=== PATIENT | female | born 1950 | race Caucasian/White ===

== ENCOUNTER 2016-07-15 19:45 | Inpatient (IN) | payer OTHER ==
--- NOTE | 2016-07-15 20:00 | PDOC ---
History of Present Illness - General History Source: [facility] Records Exam Limitations: Other (Nonverbal) - History of Present Illness Initial Comments: 07/15/16 20:12 The patient is a 66-year-old female from [facility], who presents to the ED with asthma, CVA, hypertension, and depression, who was sent to the ED for nausea and vomiting. HPI is limited because patient is nonverbal. 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) CVA: Yes (11/2013) Psychiatric Problems: Yes (depression) - Surgical History Abdominal Surgery: Yes (gt for feeding) - Psycho/Social/Smoking Cessation Hx Anxiety: No Suicidal Ideation: No Smoking History: Former smoker Have you smoked in the past 12 months: No If you are a former smoker, when did you quit?: 2013 Hx Alcohol Use: No Drug/Substance Use Hx: No Substance Use Type: None Hx Substance Use Treatment: No <Melany Hoyt - Last Filed: 07/16/16 05:32> - Past Medical History Allergies/Adverse Reactions: Allergies Allergy/AdvReac Type Severity Reaction Status Date / Time No Known Allergies Allergy Verified 07/15/16 19:52 Home Medications: Ambulatory Orders Unobtainable [Unobtainable] 07/15/16 Review of Systems - Review of Systems Able to Perform ROS?: No Comments:: 07/15/16 20:12 HPI unable to obtain because patient is nonverbal. <Rosemary Knox - Last Filed: 07/15/16 23:34> *Physical Exam - Vital Signs Last Vital Signs Temp Pulse Resp BP Pulse Ox 98.2 F 105 H 18 125/80 99 07/15/16 19:54 07/15/16 19:54 07/15/16 19:54 07/15/16 19:54 07/15/16 19:54 - Physical Exam Comments: 07/15/16 20:12 GENERAL: No acute distress. Afebrile (+)Pt is nonverbal. HEENT: Normocephalic, atraumatic. PERRLA, EOMI. No conjunctival pallor. Sclera are non- icteric. Moist mucous membranes. Oropharynx is clear. NECK: Supple. Full ROM. No JVD. Carotid pulses 2+ and symmetric, without bruits. No thyromegaly. No lymphadenopathy. CARDIOVASCULAR: Regular rate and rhythm. No murmurs, rubs, or gallops. Distal pulses are 2+ and symmetric. PULMONARY: No evidence of respiratory distress. Lungs clear to auscultation bilaterally. No wheezing, rales or rhonchi. ABDOMINAL: Soft. Non-tender. Non-distended. No rebound or guarding. No organomegaly. Normoactive bowel sounds. PEG tube in place. MUSCULOSKELETAL Normal range of motion at all joints. No bony deformities or tenderness. No CVA tenderness. EXTREMITIES: No cyanosis. No clubbing. No edema. No calf tenderness. SKIN: Warm and dry. Normal capillary refill. No rashes. No jaundice. NEUROLOGICAL: No neurological deficits. <Rosemary Knox - Last Filed: 07/15/16 23:34> ED Treatment Course - LABORATORY CBC & Chemistry Diagram: 07/15/16 20:38 07/15/16 20:38 <Rosemary Knox - Last Filed: 07/15/16 23:34> - LABORATORY CBC & Chemistry Diagram: 07/15/16 20:38 07/15/16 20:38 <Melany Hoyt - Last Filed: 07/16/16 05:32> Medical Decision Making - Medical Decision Making 07/15/16 23:30 Pt is nonverbal; sent from the OR for nausea and vomiting. Pt is afebrile in the ER. She has no guarding and no rebound. SHe has a PEG in place and her abdomen is soft and NT on exam. Pt does have an elevated WBC count and elevated Total bilirubin and elevated LFTs. US demonstrates sludge and small stones in the GB and fatty liver. She has no sign of cholecystitis so no surgical emergency. However she will require GI evaluation. CT scan is pending. We placed oral contrast through her PEG tube so that we can eval her abd/pelvis with CT scan. 07/16/16 04:07 Patient Name: Dorina Ruvalcaba THIS IS A PRELIMINARYREPORT FROM [facility] EXAM: CT abdomen and pelvis without contrast IMAGES: 422 INDICATION: Rule out ileus, obstruction or colitis. DATE OF SERVICE: 2016-07-16 03:32:26.0 COMPARISON: none FINDINGS: Lung bases are clear other than mild dependent atelectasis. The visualized cardiac chambers are normal size and configuration. There is gallbladder sludge but gallbladder inflammation or duct dilation. Mild bilateral renal scarring is noted without stones or hydronephrosis. Gastrostomy balloon is noted in the stomach without gastric inflammation. Normal unenhanced liver, pancreas, spleen, adrenal glands . The abdominal small and large bowel are normal. There is no aortic aneurysm. There is no significant retroperitoneal lymphadenopathy. There is sigmoid diverticulosis without diverticulitis. Large amount of rectal stool could represent impaction of the significant stenosis proximal to the rectum.. The appendix is normal. The uterus and adnexal structures are normal. Urinary bladder is unremarkable. There is no pelvic free fluid. No discrete pelvic lymphadenopathy is identified. IMPRESSION: No bowel inflammation, obstruction or ileus. Sigmoid diverticulosis. Questionable fecal impaction. Gallstones. Mild bilateral renal scarring. THIS DOCUMENT HAS BEEN ELECTRONICALLY SIGNED 07/16/16 05:13 Pt comes with nausea and vomiting at the OR; she is nonverbal after having had suffered multiple strokes in the past. She is afebrile in the ER and she has no abdominal pain when I examine her. However , as she is non verbal, and as her LFTs are elevated and she has an elevdated WBC count with a left shift, I decided to sono and CT scan her. Pt has sludge in the GB and stones, but no cholecystitis. She will be admitted for GI evaluation, as her total bilirubin is elevated. 07/16/16 05:[address] Farrar's service. <Melany Hoyt - Last Filed: 07/16/16 05:32> *DC/Admit/Observation/Transfer - Attestations Scribe Attestion: 07/15/16 20:16 Documentation prepared by Rosemary Knox, acting as medical pathologist for Melany Hoyt MD. <Rosemary Knox - Last Filed: 07/15/16 23:34> - Discharge Dispostion Admit: Yes <Melany Hoyt - Last Filed: 07/16/16 05:32> Diagnosis at time of Disposition: Nausea and vomiting, Biliary colic, Hyperbilirubinemia - Referrals
[2016-07-15 20:02] VITALS: BMI 30.2
[2016-07-15] MEDS ORDERED: SODIUM CHLORIDE 0.9% 500 ML INFUS.BAG IV ONE (20:11)
[2016-07-15 20:52] LABS: BASOPHIL 0.3 % (0-2.0); MCH 27.7 pg (25.7-33.7); MCHC 32.2 g/dl (32.0-36.0); MEAN CELL VOLUME 86.1 fl (80-96); MEAN PLT VOLUME 9.8 fl (7.5-11.1); NEUTROPHILS 92.3 % (42.8-82.8); PLATELET COUNT 195 K/MM3 (134-434); RDW 14.8 % (11.6-15.6); WHITE BLOOD COUNT 11.5 K/mm3 (4.0-10.0)
[2016-07-15 21:05] LABS: INR 1.11 (0.82-1.09); PROTHROMBIN TIME (PATIENT) 12.2 SEC (9.98-11.88)
[2016-07-15 21:24] LABS: ALBUMIN 3.6 g/dl (3.4-5.0); BILIRUBIN,TOTAL 1.2 mg/dL (0.2-1.0); CALCIUM 9.3 mg/dL (8.5-10.1); COCKROFT - GAULT 64.2515; TOT PROT 7.8 g/dl (6.4-8.2)
[2016-07-15] MEDS ORDERED: METOCLOPRAMIDE HCL INJECTION 10 MG/2 ML VIAL ONE (23:44)
[2016-07-15] MEDS ORDERED: ONDANSETRON 4 MG/2 ML VIAL ONE (23:44)
[2016-07-15] MEDS ORDERED: PANTOPRAZOLE SODIUM 40 MG in SODIUM CHLORIDE 100 ML IVPB ONE (23:57)
[2016-07-15] MEDS ORDERED: PIPERACILLIN/TAZOB 3.375 GM 3.375 GM in DEXTROSE 5%-WATER - 50 ML IVPB ONE (23:57)
[2016-07-16] MEDS ORDERED: ONDANSETRON 4 MG/2 ML VIAL IVPB ONE (00:09)
[2016-07-16] MEDS ORDERED: PIPERACILLIN/TAZOB 3.375 GM 50 ML IVPB ONE (00:09)
[2016-07-16] MEDS ORDERED: METOCLOPRAMIDE HCL INJECTION 10 MG/2 ML VIAL IVPB ONE (00:09)
[2016-07-16] MEDS ORDERED: PANTOPRAZOLE SODIUM 100 ML IVPB ONE (00:09)
[2016-07-16] MEDS ORDERED: ONDANSETRON *ODT* 4 MG TABLET SL PRN (01:22)
[2016-07-16] MEDS ORDERED: morphine CARPU-JECT 2 MG/1 ML DISP.SYRIN IVPUSH PRN (01:22)
[2016-07-16] MEDS: DEXTROSE 5%-NORMAL SALINE 1,000 ML IV SCH ×2 (02:15→18:51)
[2016-07-16 07:33] LABS: MCH 28.6 pg (25.7-33.7); MCHC 33.5 g/dl (32.0-36.0); MEAN CELL VOLUME 85.6 fl (80-96); MEAN PLT VOLUME 9.1 fl (7.5-11.1); PLATELET COUNT 144 K/MM3 (134-434); RDW 14.9 % (11.6-15.6); WHITE BLOOD COUNT 10.7 K/mm3 (4.0-10.0)
[2016-07-16 08:05] LABS: ALBUMIN 2.8 g/dl (3.4-5.0)
[2016-07-16 08:11] LABS: BILIRUBIN,TOTAL 0.8 mg/dL (0.2-1.0); C-REACTIVE PROTEIN 6.5 MG/DL (0.00-0.3); CALCIUM 8.4 mg/dL (8.5-10.1); COCKROFT - GAULT 64.2515; TOT PROT 6.2 g/dl (6.4-8.2)
[2016-07-16 09:14] LABS: ERYTHROCYTE SEDIMENTATION RATE 46 mm/hr (0-30)
[2016-07-16] MEDS: PANTOPRAZOLE SODIUM 100 ML IVPB SCH (09:28)
--- NOTE | 2016-07-16 15:17 | CON.GI ---
Consult Consult Specialty:: GI Referred by:: Dr Medina Reason for Consultation:: N/V - History of Present Illness Chief Complaint: Sent from [place] with N/V History of Present Illness: Patient with h/o multiple CVAs with aphasia, HTN, PEG admitted from [facility] after several episodes of N/V. On arrival noted to have elevated WBC and abnormal LFTs with marginally abnormal t bili. She is currently comfortable. LFTs have normalized. 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: CVA (with aphasia) Cardio/Vascular: Yes: HTN ...: No - Alcohol/Substance Use Hx Alcohol Use: No - Smoking History Smoking history: Former smoker Have you smoked in the past 12 months: No If you are a former smoker, when did you quit?: 2013 - Social History Usual Living Arrangement: [facility] Home Medications - Allergies Allergies/Adverse Reactions: Allergies Allergy/AdvReac Type Severity Reaction Status Date / Time No Known Allergies Allergy Verified 07/15/16 19:52 - Home Medications Home Medications: Ambulatory Orders Unobtainable [Unobtainable] 07/15/16 Physical Exam-GI Vital Signs: Vital Signs Temperature 98.8 F 07/16/16 09:34 Pulse Rate 85 07/16/16 09:34 Respiratory Rate 18 07/16/16 09:34 Blood Pressure 91/55 07/16/16 09:34 O2 Sat by Pulse Oximetry (%) 97 07/16/16 05:29 Constitutional: Yes: Obese HENT: Yes: Normocephalic Neck: Yes: Supple Cardiovascular: Yes: Regular Rate and Rhythm Respiratory: Yes: CTA Bilaterally Gastrointestinal Inspection: Yes: Distention ...Palpate: Yes: Soft. No: Tenderness Labs: CBC, BMP 07/16/16 06:00 07/16/16 07:20 INR, PTT INR 1.11 (0.82-1.09) 07/15/16 20:38 Imaging - Results Ultrasound: Report Reviewed (sludge and stones in gb. No dilated ducts) Assessment/Plan Patient with likely passed gallstone vs sludge Surgical eval Clear liquids Continue IV Ab Hida
--- NOTE | 2016-07-16 16:55 | HP ---
Admitting History and Physical - Primary Care Physician PCP: Eliazar Farrar - Admission Chief Complaint: NAUSEA/VOMITING/ABD PAIN History of Present Illness: The patient is a 66-year-old female from [facility], who presents to the ED with asthma, CVA, hypertension, and depression, who was sent to the ED for nausea and vomiting. HPI is limited because patient is nonverbal. 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: CVA (with aphasia) Cardiovascular: Yes: HTN ...: No - Smoking History Smoking history: Former smoker Have you smoked in the past 12 months: No If you are a former smoker, when did you quit?: 2013 - Alcohol/Substance Use Hx Alcohol Use: No Home Medications - Allergies Allergies/Adverse Reactions: Allergies Allergy/AdvReac Type Severity Reaction Status Date / Time No Known Allergies Allergy Verified 07/15/16 19:52 - Home Medications Home Medications: Ambulatory Orders Unobtainable [Unobtainable] 07/15/16 Review of Systems - Review of Systems Constitutional: reports: Weakness Eyes: reports: No Symptoms HENT: reports: No Symptoms Neck: reports: No Symptoms Cardiovascular: reports: No Symptoms Respiratory: reports: No Symptoms Gastrointestinal: reports: Abdominal Pain, Nausea, Vomiting Genitourinary: reports: Incontinence Musculoskeletal: reports: Muscle Weakness Integumentary: reports: No Symptoms Neurological: reports: Pre-Existing Deficit Endocrine: reports: No Symptoms Hematology/Lymphatic: reports: No Symptoms Psychiatric: reports: Other Physical Examination Vital Signs: Vital Signs Temperature 98.2 F 07/16/16 15:36 Pulse Rate 79 07/16/16 15:36 Respiratory Rate 16 07/16/16 15:36 Blood Pressure 94/54 07/16/16 15:36 O2 Sat by Pulse Oximetry (%) 98 07/16/16 08:54 Constitutional: Yes: Mild Distress Eyes: Yes: WNL HENT: Yes: WNL Neck: Yes: WNL Cardiovascular: Yes: WNL Respiratory: Yes: WNL Gastrointestinal: Yes: Tenderness Renal/: Yes: Incontinence Musculoskeletal: Yes: Muscle Weakness Extremities: Yes: Other Edema: No Peripheral Pulses WNL: Yes Integumentary: Yes: WNL Wound/Incision: Yes: Clean/Dry Neurological: Yes: Confusion, Pre-Existing Deficit ...Motor Strength: LLE, RLE Psychiatric: Yes: Other Labs: CBC, BMP 07/16/16 06:00 07/16/16 07:20 Imaging - Results Cat Scan: Report Reviewed Problem List - Problems (1) Biliary colic Code(s): K80.50 - CALCULUS OF BILE DUCT W/O CHOLANGITIS OR CHOLECYST W/O OBST (2) Hyperbilirubinemia Code(s): E80.6 - OTHER DISORDERS OF BILIRUBIN METABOLISM (3) Nausea and vomiting Code(s): R11.2 - NAUSEA WITH VOMITING, UNSPECIFIED Qualifiers: Vomiting type: bilious vomiting Qualified Code(s): R11.14 - Bilious vomiting (4) Abnormal LFTs Code(s): R79.89 - OTHER SPECIFIED ABNORMAL FINDINGS OF BLOOD CHEMISTRY (5) CVA, old, aphasia Code(s): I69.320 - APHASIA FOLLOWING CEREBRAL INFARCTION (6) Gallstones Code(s): K80.20 - CALCULUS OF GALLBLADDER W/O CHOLECYSTITIS W/O OBSTRUCTION Qualifiers: Cholecystitis acuity: acute Biliary obstruction: without biliary obstruction (7) Right upper quadrant abdominal pain Code(s): R10.11 - RIGHT UPPER QUADRANT PAIN Assessment/Plan IV FLIUDS [facility] AND SURGERY EVAL MONITOR LFT'S
[2016-07-17] MEDS: DEXTROSE 5%-NORMAL SALINE 1,000 ML IV SCH ×2 (01:30→07:16)
[2016-07-17] MEDS: PANTOPRAZOLE SODIUM 100 ML IVPB SCH (09:39)
--- NOTE | 2016-07-17 15:05 | PN ---
GI Progress Note Subjective: Patient is awake and aphasic. Cries at the least provocation Her LFT's are dropping-none today She does not seem to have abdominal tenderness on exam - Objective Vital Signs: Vital Signs Temperature 98.2 F 07/17/16 14:35 Pulse Rate 62 07/17/16 14:35 Respiratory Rate 16 07/17/16 14:35 Blood Pressure 100/55 07/17/16 14:35 O2 Sat by Pulse Oximetry (%) 98 07/16/16 21:00 Constitutional: Well Nourished, Obese HENT: Yes: Normocephalic Cardiovascular: Yes: Regular Rate and Rhythm Respiratory: Yes: CTA Bilaterally ...Auscultate: Yes: Normoactive Bowel Sounds ...Palpate: Yes: Soft. No: Tenderness Labs: CBC, BMP 07/16/16 06:00 07/16/16 07:20 INR, PTT INR 1.11 (0.82-1.09) 07/15/16 20:38 - ....Imaging Cat Scan: Image Reviewed (Await final report) Other: Pending (HIDA pending) Assessment/Plan LFTs down. If they continue to trend down, likely etiology passed stone/sludge Will review BW in AM Should probably have gb removed to prevent future attack
--- NOTE | 2016-07-17 15:20 | PN ---
Progress Note, Physician History of Present Illness: comfortable - Current Medication List Current Medications: Active Medications Dextrose/Sodium Chloride (D5-Ns -) 1,000 mls @ 83 mls/hr IV ASDIR [facility] Last Admin: 07/17/16 07:16 Dose: 83 mls/hr Pantoprazole Sodium (Protonix 40mg Ivpb (Pre-Docked)) 100 mls @ 200 mls/hr IVPB DAILY [facility] Last Admin: 07/17/16 09:39 Dose: 200 mls/hr Morphine Sulfate (Morphine Injection -) 2 mg IVPUSH Q4H PRN PRN Reason: PAIN Ondansetron HCl (Zofran Odt -) 4 mg SL Q6H PRN PRN Reason: NAUSEA AND/OR VOMITING Sodium Phosphate (Fleet Adult Rectal Enema -) 133 ml [place] BID [facility] - Objective Vital Signs: Vital Signs Temperature 98.2 F 07/17/16 14:35 Pulse Rate 62 07/17/16 14:35 Respiratory Rate 16 07/17/16 14:35 Blood Pressure 100/55 07/17/16 14:35 O2 Sat by Pulse Oximetry (%) 98 07/16/16 21:00 Constitutional: Yes: Calm HENT: Yes: Atraumatic Neck: Yes: Supple Cardiovascular: Yes: Regular Rate and Rhythm Respiratory: Yes: CTA Bilaterally Gastrointestinal: Yes: Normal Bowel Sounds Edema: No Neurological: Yes: Alert Labs: CBC, BMP 07/16/16 06:00 07/16/16 07:20 INR, PTT INR 1.11 (0.82-1.09) 07/15/16 20:38 Problem List - Problems (1) Biliary colic Assessment/Plan: pt is comfortable prn pain meds Code(s): K80.50 - CALCULUS OF BILE DUCT W/O CHOLANGITIS OR CHOLECYST W/O OBST (2) Hyperbilirubinemia Assessment/Plan: improving Code(s): E80.6 - OTHER DISORDERS OF BILIRUBIN METABOLISM (3) Nausea and vomiting Assessment/Plan: improved Code(s): R11.2 - NAUSEA WITH VOMITING, UNSPECIFIED Qualifiers: Vomiting type: bilious vomiting Qualified Code(s): R11.14 - Bilious vomiting (4) Abnormal LFTs Assessment/Plan: trending down Code(s): R79.89 - OTHER SPECIFIED ABNORMAL FINDINGS OF BLOOD CHEMISTRY (5) Gallstones Assessment/Plan: surgery eval pending gi eval reviewed Code(s): K80.20 - CALCULUS OF GALLBLADDER W/O CHOLECYSTITIS W/O OBSTRUCTION Qualifiers: Cholecystitis acuity: acute Biliary obstruction: without biliary obstruction (6) Pancreatitis Code(s): K85.9 - ACUTE PANCREATITIS, UNSPECIFIED * DO NOT USE *
--- NOTE | 2016-07-17 21:44 | CONSULT ---
Consult Consult Specialty:: Surgery Reason for Consultation:: Nausea/vomiting. 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: CVA (with aphasia) Cardio/Vascular: Yes: HTN ...: No - Alcohol/Substance Use Hx Alcohol Use: No - Smoking History Smoking history: Former smoker Have you smoked in the past 12 months: No If you are a former smoker, when did you quit?: 2013 - Social History Usual Living Arrangement: [facility] Home Medications - Allergies Allergies/Adverse Reactions: Allergies Allergy/AdvReac Type Severity Reaction Status Date / Time No Known Allergies Allergy Verified 07/15/16 19:52 - Home Medications Home Medications: Ambulatory Orders Acetaminophen [Tylenol] 650 mg GT Q6H PRN 07/16/16 Aspirin [ASA -] 81 mg GT DAILY 07/16/16 Docusate Liquid [Colace Liquid -] 100 mg GT HS 07/16/16 Fluticasone 2 spray NS PRN 07/16/16 Furosemide *Pediatric Soln* [Lasix *Pediatric*] 10 mg GT DAILY 07/16/16 [place]-3/Dha/Epa/Fish Oil [Fish Oil 1,600 mg/5 ml Liquid] 1,600 mg GT BIDAC 07/16 Proair 2 puff PO QID 07/16/16 Ranitidine HCl [Zantac] 150 mg GT BID 07/16/16 Sertraline HCl 50 mg GT HS 07/16/16 Review of Systems Unable to obtain ROS, reason: Nonverbal Physical Exam Vital Signs: Vital Signs Temperature 98.2 F 07/17/16 14:35 Pulse Rate 62 07/17/16 14:35 Respiratory Rate 16 07/17/16 14:35 Blood Pressure 100/55 07/17/16 14:35 O2 Sat by Pulse Oximetry (%) 98 07/17/16 09:00 Gastrointestinal: Yes: Soft, Other (G tube in place). No: Distention, Tenderness, Tenderness, Rebound Labs: CBC, BMP 07/16/16 06:00 07/16/16 07:20 Imaging - Results Cat Scan: Report Reviewed, Image Reviewed Ultrasound: Report Reviewed, Image Reviewed Assessment/Plan 66 female with nausea/vomiting No need for emergent surgical intervention Elevated LFTs may be due to hepatocellular disease seen on imaging or gallbladder sludge Diet as tolerated
[2016-07-17] MEDS: SODIUM PHOSPHATE/NA BIPHOS 133 ML ENEMA PR SCH (21:55)
[2016-07-18] MEDS: DEXTROSE 5%-NORMAL SALINE 1,000 ML IV SCH ×2 (00:29→11:22)
[2016-07-18 08:22] LABS: ALBUMIN 2.5 g/dl (3.4-5.0); ALK PHOS 79 U/L (45-117); ANION GAP 9 (8-16); BILIRUBIN,TOTAL 0.5 mg/dL (0.2-1.0); CALCIUM 8.2 mg/dL (8.5-10.1); CO2 25 mmol/L (21-32); COCKROFT - GAULT 91.7915; CREATININE 0.7 mg/dL (0.55-1.02); GLUCOSE,RANDOM 88 mg/dL (74-106); SGOT/AST 35 U/L (15-37); SGPT/ALT 57 U/L (12-78); TOT PROT 5.5 g/dl (6.4-8.2)
[2016-07-18] MEDS: PANTOPRAZOLE SODIUM 100 ML IVPB SCH (09:14)
[2016-07-18] MEDS: SODIUM PHOSPHATE/NA BIPHOS 133 ML ENEMA PR SCH ×2 (09:25→21:49)
--- NOTE | 2016-07-18 10:24 | EKG ---
Test Reason : Blood Pressure : / mmHG Vent. Rate : 102 BPM Atrial Rate : 102 BPM P-R Int : 168 ms QRS Dur : 086 ms QT Int : 354 ms P-R-T Axes : 060 098 041 degrees QTc Int : 461 ms SINUS TACHYCARDIA RIGHTWARD AXIS LOW VOLTAGE QRS NONSPECIFIC T WAVE ABNORMALITY ABNORMAL ECG WHEN COMPARED WITH ECG OF 15-AUG-2014 08:45, NONSPECIFIC T WAVE ABNORMALITY NOW EVIDENT IN LATERAL LEADS Confirmed by BLANCHE GUILLORY, ONEIDA ([id number]) on 07/18/2016 10:23:52 AM Referred By: Confirmed By:ONEIDA MANCIA MD
--- NOTE | 2016-07-18 10:28 | PN ---
Progress Note (short form) - Note Progress Note: No acute events Vital Signs Period Temp Pulse Resp BP Sys/M[place]roe Pulse Ox Last 24 Hr 98.1 F-99.3 F 62-68 14-20 100-127/52-78 97-99 Abd soft, no rebound CBC,CMP WBC 10.7 K/mm3 (4.0-10.0) H 07/16/16 06:00 RBC 4.00 M/mm3 (3.60-5.2) 07/16/16 06:00 Hgb 11.5 GM/dL (10.7-15.3) D 07/16/16 06:00 Hct 34.2 % (32.4-45.2) D 07/16/16 06:00 MCV 85.6 fl (80-96) 07/16/16 06:00 MCHC 33.5 g/dl (32.0-36.0) 07/16/16 06:00 RDW 14.9 % (11.6-15.6) 07/16/16 06:00 Plt Count 144 K/MM3 (134-434) D 07/16/16 06:00 MPV 9.1 fl (7.5-11.1) 07/16/16 06:00 Neutrophils % 92.3 % (42.8-82.8) H D 07/15/16 20:38 Lymphocytes % 2.2 % (8-40) L D 07/15/16 20:38 Monocytes % 5.2 % (3.8-10.2) 07/15/16 20:38 Eosinophils % 0.0 % (0-4.5) D 07/15/16 20:38 Basophils % 0.3 % (0-2.0) 07/15/16 20:38 ESR 46 mm/hr (0-30) H 07/16/16 06:00 Sodium 145 mmol/L (136-145) 07/18/16 06:00 Potassium 3.6 mmol/L (3.5-5.1) 07/18/16 06:00 Chloride 111 mmol/L (98-107) H 07/18/16 06:00 Carbon Dioxide 25 mmol/L (21-32) 07/18/16 06:00 Anion Gap 9 (8-16) 07/18/16 06:00 BUN 9 mg/dL (7-18) D 07/18/16 06:00 Creatinine 0.7 mg/dL (0.55-1.02) D 07/18/16 06:00 Creat Clearance w eGFR > 60 (>60) 07/18/16 06:00 Random Glucose 88 mg/dL (74-106) D 07/18/16 06:00 Calcium 8.2 mg/dL (8.5-10.1) L 07/18/16 06:00 Total Bilirubin 0.5 mg/dL (0.2-1.0) D 07/18/16 06:00 AST 35 U/L (15-37) D 07/18/16 06:00 ALT 57 U/L (12-78) D 07/18/16 06:00 Alkaline Phosphatase 79 U/L (45-117) D 07/18/16 06:00 C-Reactive Protein 6.5 MG/DL (0.00-0.3) H 07/16/16 07:20 Total Protein 5.5 g/dl (6.4-8.2) L 07/18/16 06:00 Albumin 2.5 g/dl (3.4-5.0) L 07/18/16 06:00 Total Amylase 51 U/L (25-115) 07/15/16 20:38 Lipase 72 U/L (73-393) L 07/16/16 07:20 No urgent surgical intervention needed at this time Would start tube feeds
--- NOTE | 2016-07-18 13:48 | PN ---
Progress Note, Physician - Current Medication List Current Medications: Active Medications Dextrose/Sodium Chloride (D5-Ns -) 1,000 mls @ 83 mls/hr IV ASDIR [facility] Last Admin: 07/18/16 11:22 Dose: Not Given Pantoprazole Sodium (Protonix 40mg Ivpb (Pre-Docked)) 100 mls @ 200 mls/hr IVPB DAILY [facility] Last Admin: 07/18/16 09:14 Dose: 200 mls/hr Morphine Sulfate (Morphine Injection -) 2 mg IVPUSH Q4H PRN PRN Reason: PAIN Ondansetron HCl (Zofran Odt -) 4 mg SL Q6H PRN PRN Reason: NAUSEA AND/OR VOMITING Sodium Phosphate (Fleet Adult Rectal Enema -) 133 ml [place] BID [facility] Last Admin: 07/18/16 09:25 Dose: 133 ml - Objective Vital Signs: Vital Signs Temperature 98.8 F 07/18/16 10:00 Pulse Rate 64 07/18/16 10:00 Respiratory Rate 14 07/18/16 10:00 Blood Pressure 114/78 07/18/16 10:00 O2 Sat by Pulse Oximetry (%) 99 07/18/16 09:00 Constitutional: Yes: Calm Cardiovascular: Yes: Regular Rate and Rhythm, S1, S2 Respiratory: Yes: CTA Bilaterally Gastrointestinal: Yes: Normal Bowel Sounds, Soft Labs: CBC, BMP 07/16/16 06:00 07/18/16 06:00 INR, PTT INR 1.11 (0.82-1.09) 07/15/16 20:38 Assessment/Plan gall blader sludge awaiting HIDA scan LFT trending down now normal appreciate surgical input restart tube feeding today if tolerate feeds and normal HIDA then dc back to [facility]
--- NOTE | 2016-07-18 13:51 | DS ---
Physical Examination Vital Signs: Vital Signs Temperature 98.8 F 07/18/16 10:00 Pulse Rate 64 07/18/16 10:00 Respiratory Rate 14 07/18/16 10:00 Blood Pressure 114/78 07/18/16 10:00 O2 Sat by Pulse Oximetry (%) 99 07/18/16 09:00 Constitutional: Yes: Calm Cardiovascular: Yes: Regular Rate and Rhythm, S1, S2 Respiratory: Yes: CTA Bilaterally Gastrointestinal: Yes: Normal Bowel Sounds, Soft Neurological: Yes: Aphasia Labs: CBC, BMP 07/16/16 06:00 07/18/16 06:00 Discharge Summary Reason For Visit: BILIARY COLIC, NAUSEA AND VOMITING Current Active Problems Biliary colic (Acute) Hyperbilirubinemia (Acute) Nausea and vomiting (Acute) Hospital Course: Chief Complaint: NAUSEA/VOMITING/ABD PAIN History of Present Illness: The patient is a 66-year-old female from [facility], who presents to the ED with asthma, CVA, hypertension, and depression, who was sent to the ED for nausea and vomiting. HPI is limited because patient is nonverbal. 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: CVA (with aphasia) Cardiovascular: Yes: HTN ...: No - Smoking History Smoking history: Former smoker Have you smoked in the past 12 months: No If you are a former smoker, when did you quit?: 2013 CT scan shows rectal distension with stool seen by GI and laxative started HIDAs scan pending lft now normal wbc trending down, no surgical intervention required restart tube feeds Condition: Improved - Instructions Referrals: Milagros Wheeler MD [Primary Care Provider] - Disposition: LONG TERM FACILITY - Home Medications Comprehensive Discharge Medication List: Ambulatory Orders Acetaminophen [Tylenol] 650 mg GT Q6H PRN 07/16/16 Aspirin [ASA -] 81 mg GT DAILY 07/16/16 Docusate Liquid [Colace Liquid -] 100 mg GT HS 07/16/16 Fluticasone 2 spray NS PRN 07/16/16 Furosemide *Pediatric Soln* [Lasix *Pediatric*] 10 mg GT DAILY 07/16/16 [place]-3/Dha/Epa/Fish Oil [Fish Oil 1,600 mg/5 ml Liquid] 1,600 mg GT BIDAC 07/16 Proair 2 puff PO QID 07/16/16 Ranitidine HCl [Zantac] 150 mg GT BID 07/16/16 Sertraline HCl 50 mg GT HS 07/16/16
--- NOTE | 2016-07-18 20:13 | PN ---
GI Progress Note Subjective: Patient clinically unchanged - Objective Vital Signs: Vital Signs Temperature 98.5 F 07/18/16 17:52 Pulse Rate 59 L 07/18/16 17:52 Respiratory Rate 18 07/18/16 17:52 Blood Pressure 133/69 07/18/16 17:52 O2 Sat by Pulse Oximetry (%) 99 07/18/16 09:00 Constitutional: Well Nourished HENT: Yes: Normocephalic Neck: Yes: Supple Cardiovascular: Yes: Regular Rate and Rhythm Respiratory: Yes: CTA Bilaterally Gastrointestinal Inspection: Yes: WNL ...Auscultate: Yes: Normoactive Bowel Sounds ...Palpate: Yes: Soft ...Percussion: Yes: Tympanitic Labs: CBC, BMP 07/16/16 06:00 07/18/16 06:00 INR, PTT INR 1.11 (0.82-1.09) 07/15/16 20:38 Hepatic Panel Total Bilirubin 0.5 mg/dL (0.2-1.0) D 07/18/16 06:00 AST 35 U/L (15-37) D 07/18/16 06:00 ALT 57 U/L (12-78) D 07/18/16 06:00 Alkaline Phosphatase 79 U/L (45-117) D 07/18/16 06:00 Albumin 2.5 g/dl (3.4-5.0) L 07/18/16 06:00 - ....Imaging Other: Report Reviewed (HIDA scan: No filling of gallbladder after 2 hours. Biliary to bowel transit normal (15 min)) Assessment/Plan LFTs down-now normal. HIDA scan suggests cystic duct obstruction Expect recurrence. Should probably have gb removed to prevent future attack.
[2016-07-19 06:29] VITALS: BP 110/64; PULSE 63; TEMP 98.3
[2016-07-19 07:51] LABS: BASOPHIL 0.8 % (0-2.0); EOSINOPHIL 4.3 % (0-4.5); MCH 28.5 pg (25.7-33.7); MCHC 33.5 g/dl (32.0-36.0); MEAN CELL VOLUME 85.1 fl (80-96); MEAN PLT VOLUME 9.1 fl (7.5-11.1); NEUTROPHILS 49.1 % (42.8-82.8); PLATELET COUNT 119 K/MM3 (134-434); RDW 14.4 % (11.6-15.6); WHITE BLOOD COUNT 4.7 K/mm3 (4.0-10.0)
[2016-07-19 08:17] LABS: ALBUMIN 2.5 g/dl (3.4-5.0); ALK PHOS 84 U/L (45-117); ANION GAP 10 (8-16); BILIRUBIN,TOTAL 0.5 mg/dL (0.2-1.0); CALCIUM 8.2 mg/dL (8.5-10.1); CO2 26 mmol/L (21-32); COCKROFT - GAULT 91.7915; CREATININE 0.7 mg/dL (0.55-1.02); GLUCOSE,RANDOM 106 mg/dL (74-106); SGOT/AST 28 U/L (15-37); SGPT/ALT 53 U/L (12-78); TOT PROT 5.7 g/dl (6.4-8.2)
[2016-07-19] MEDS ORDERED: POTASSIUM CHLORIDE TABS 20 MEQ TABLET.ER (FP) PO ONE (10:14)
[2016-07-19] MEDS ORDERED: POTASSIUM CHLORIDE ORAL LIQUID 20 MEQ/15 ML PO ONE (10:17)
--- NOTE | 2016-07-19 10:17 | PN ---
Progress Note, Physician Chief Complaint: patient in bed no distress no complaints tolerating tube feeds - Current Medication List Current Medications: Active Medications Pantoprazole Sodium (Protonix 40mg Ivpb (Pre-Docked)) 100 mls @ 200 mls/hr IVPB DAILY [facility] Last Admin: 07/18/16 09:14 Dose: 200 mls/hr Ondansetron HCl (Zofran Odt -) 4 mg SL Q6H PRN PRN Reason: NAUSEA AND/OR VOMITING Sodium Phosphate (Fleet Adult Rectal Enema -) 133 ml CA BID [facility] Last Admin: 07/18/16 21:49 Dose: 133 ml - Objective Vital Signs: Vital Signs Temperature 98.3 F 07/19/16 06:27 Pulse Rate 63 07/19/16 06:27 Respiratory Rate 20 07/19/16 06:27 Blood Pressure 110/64 07/19/16 06:27 O2 Sat by Pulse Oximetry (%) 95 07/18/16 22:18 Constitutional: Yes: Calm Neck: Yes: Trachea Midline Respiratory: Yes: CTA Bilaterally Gastrointestinal: Yes: Normal Bowel Sounds, Soft Edema: No Neurological: Yes: Aphasia Labs: CBC, BMP 07/19/16 06:15 07/19/16 06:15 INR, PTT INR 1.11 (0.82-1.09) 07/15/16 20:38 Assessment/Plan elevated LFT now trending down tolerating tube feeds HIDA scan cystic duct obstruction stacey need GB removal at some time in future appreciate surgical note will send patient back to [facility] and get in touch with family member /HCP regarding surgery hypokalemia: liquid potassium dc to [place]
[2016-07-19] MEDS: SODIUM PHOSPHATE/NA BIPHOS 133 ML ENEMA PR SCH (10:55)
[2016-07-19] MEDS: PANTOPRAZOLE SODIUM 100 ML IVPB SCH (10:55)
== END 2016-07-19 13:11 | DRG 446 ==
LOC: JER 19:45 → JERBED 07-16 → J8W 07-16 05:01
PROVIDERS: ADMIT Family Medicine; ATTEND Family Medicine
PROC: 3E0G76Z Introduction of Nutritional Substance into Upper GI, Via Natural or Artificial Opening (ICD-10-PCS; principal; 2016-07-18)
DX: K80.21 Calculus of gallbladder without cholecystitis with obstruction (principal); J45.909 Unspecified asthma, uncomplicated; I10 Essential (primary) hypertension; F32.9 Major depressive disorder, single episode, unspecified; I69.320 Aphasia following cerebral infarction; Z87.891 Personal history of nicotine dependence; E66.9 Obesity, unspecified; R79.89 Other specified abnormal findings of blood chemistry; Z93.1 Gastrostomy status; E87.6 Hypokalemia; Z68.30 Body mass index [BMI] 30.0-30.9, adult
CPT/HCPCS: 36415; 71010-TC; 74176-TC; 76705-TC; 78226-TC; 80053; 80074; 82150; 83690; 85025; 85027; 85610; 85651; 86140; 93005; 93010; 99283-25; A9537

== ENCOUNTER 2016-07-30 09:57 | Emergency (ER) | payer OTHER ==
[2016-07-30 10:27] VITALS: TEMP 98.5; BMI 28.9
--- NOTE | 2016-07-30 10:56 | PDOC ---
History of Present Illness - General History Source: Patient Exam Limitations: Other (nonverbal) - History of Present Illness Initial Comments: 07/30/16 11:04 The patient is a 66 year old female with a significant past medical history of dementia, CVA (with aphasia), and hypertension, sent [facility] Department after pulling out her G-tube. The patient can not give a history due to her pre-existing condition. Patient is nonverbal. The patient was sent her to have her G-tube replaced. PCP: Dr. 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) Cardiac Disorders: No CVA: Yes (11/2013) COPD: Yes CHF: No Dementia: Yes Diabetes: Yes GI Disorders: Yes (G TUBE, DYSPHAGIA) Disorders: No HTN: Yes Hypercholesterolemia: Yes Liver Disease: No Psychiatric Problems: Yes (depression, MAJOR DEPRESSIVE DISORDER) Seizures: No Thyroid Disease: No - Surgical History Abdominal Surgery: Yes (gt for feeding) Appendectomy: No Cardiac Surgery: No Cholecystectomy: No Lung Surgery: No Neurologic Surgery: No Orthopedic Surgery: Yes ((R)HIP REPLACEMENT 2007) - Psycho/Social/Smoking Cessation Hx Anxiety: No Suicidal Ideation: No Smoking History: Unknown if ever smoked Have you smoked in the past 12 months: No If you are a former smoker, when did you quit?: 2013 Hx Alcohol Use: No Drug/Substance Use Hx: No Substance Use Type: None Hx Substance Use Treatment: No <Zita Ha - Last Filed: 08/01/16 07:34> - Past Medical History Allergies/Adverse Reactions: Allergies Allergy/AdvReac Type Severity Reaction Status Date / Time No Known Allergies Allergy Verified 07/30/16 10:21 Home Medications: Ambulatory Orders Acetaminophen [Tylenol] 650 mg GT Q6H PRN 07/16/16 Aspirin [ASA -] 81 mg GT DAILY 07/16/16 Docusate Liquid [Colace Liquid -] 100 mg GT HS 07/16/16 Fluticasone 2 spray NS PRN 07/16/16 Furosemide *Pediatric Soln* [Lasix *Pediatric*] 10 mg GT DAILY 07/16/16 Murray-3/Dha/Epa/Fish Oil [Fish Oil 1,600 mg/5 ml Liquid] 1,600 mg GT BIDAC 07/16 Proair 2 puff PO QID 07/16/16 Ranitidine HCl [Zantac] 150 mg GT BID 07/16/16 Sertraline HCl 50 mg GT HS 07/16/16 Review of Systems - Review of Systems Able to Perform ROS?: No (nonverbal) <Meghana Kauffman - Last Filed: 07/30/16 11:39> *Physical Exam - Vital Signs Last Vital Signs Temp Pulse Resp BP Pulse Ox 98.5 F 70 22 98/71 99 07/30/16 10:21 07/30/16 10:21 07/30/16 10:21 07/30/16 10:21 07/30/16 10:21 - Physical Exam Comments: 07/30/16 11:05 GENERAL: The patient is in no acute distress. Patient making noises as normal, nonverbal. HEAD: Normal with no signs of trauma. EYES: PERRLA, EOMI, sclera anicteric, conjunctiva clear. ENT: Ears normal, nares patent, oropharynx clear without exudates. Moist mucous membranes. NECK: Normal range of motion, supple without lymphadenopathy, JVD, or masses. LUNGS: Breath sounds equal, clear to auscultation bilaterally. No wheezes, and no crackles. HEART: Regular rate and rhythm, normal S1 and S2 without murmur, rub or gallop. ABDOMEN: G-tube site with hypertrophied tissue. Abdomen soft. Well healed surgical scar. Nontender, normoactive bowel sounds. No guarding, no rebound. EXTREMITIES: Normal range of motion, no edema. No clubbing or cyanosis. No erythema, or tenderness. NEUROLOGICAL: Cranial nerves II through XII grossly intact. No focal neurological deficits. MUSCULOSKELETAL: Back nontender to palpation, no CVA tenderness SKIN: Warm, Dry, normal turgor, no rashes or lesions noted. <Meghana Kauffman - Last Filed: 07/30/16 11:39> - Vital Signs Last Vital Signs Temp Pulse Resp BP Pulse Ox 98.5 F 70 22 98/71 99 07/30/16 10:21 07/30/16 10:21 07/30/16 10:21 07/30/16 10:21 07/30/16 10:21 <Zita Ha - Last Filed: 08/01/16 07:34> Procedures - Additional Procedures Additional Procedures: gastric tube replacement <Zita Ha - Last Filed: 08/01/16 07:34> ED Treatment Course - RADIOLOGY Radiograph Interpretation: 07/30/16 11:39 Abdomen XRay As reviewed by Dr. Jhonathan Dutta IMPRESSION: Catheter projected over the fourth portion of duodenum near ligament of Treitz area. No sign of leak or obstruction. <Meghana Kauffman - Last Filed: 07/30/16 11:39> Medical Decision Making - Medical Decision Making 07/30/16 11:05 The Surgical PA aws consultant was called at [phone] at 10:42, a message was left on the voicemail. Awaiting call back. Patients G-tube was successfully replaced. No longer need surgical PA. <Meghana Kauffman - Last Filed: 07/30/16 11:39> - Medical Decision Making 07/30/16 10:43 A portion of this note was documented by scribe services under my direction. I have reviewed the details of the note, within reason, and agree with the documentation with the following case summary and management plan written by me. Nursing documentation reviewed and incorporated into medical decision making This is a 66 yo F sent from [facility] has a prior medical history of Asthma/COPD, Cancer, CVA 2013, HTN, HLD, DM, Dementia, Gtube Pt apparently pulled out her G tube today while she was being bathed today No other complaints Will replace G tube Will do gastrograffin study G tube replace by Dr Reed Gastrografin given with no resistance Pt tolerated this well 07/30/16 11:20 Gastrografin study demonstrates contrast in stomach and in small intestine No leak identified Will discharge back to [facility] <Zita Ha - Last Filed: 08/01/16 07:34> *DC/Admit/Observation/Transfer - Attestations Scribe Attestion: 07/30/16 11:06 Documentation prepared by Meghana Kauffman, acting as nurses medical assistants phlebotomists for Zita Ha MD/DO. <Meghana Kauffman - Last Filed: 07/30/16 11:39> - Discharge Dispostion Admit: No <Zita Ha - Last Filed: 08/01/16 07:34> Diagnosis at time of Disposition: Gastrostomy tube, replacement (Change of) - Discharge Dispostion Disposition: LONG-TERM FACILITY Condition at time of disposition: Stable - Referrals Referrals: Milagros Wheeler MD [Primary Care Provider] - - Patient Instructions Printed Discharge Instructions: How to Care for Your PEG Tube Additional Instructions: Please try to keep peg tube covered so that patient does not pull it out
[2016-07-30 11:54] VITALS: BP 110/63; PULSE 66
== END 2016-07-30 12:50 ==
LOC: JER 09:57
PROC: 0D20XUZ Change Feeding Device in Upper Intestinal Tract, External Approach (ICD-10-PCS; principal; 2016-07-30)
DX: Z43.1 Encounter for attention to gastrostomy (principal); J45.909 Unspecified asthma, uncomplicated; J44.9 Chronic obstructive pulmonary disease, unspecified; F03.90 Unspecified dementia, unspecified severity, without behavioral disturbance, psychotic disturbance, mood disturbance, and anxiety; I10 Essential (primary) hypertension; E78.00 Pure hypercholesterolemia, unspecified; E11.9 Type 2 diabetes mellitus without complications; F34.1 Dysthymic disorder; F41.8 Other specified anxiety disorders; I69.820 Aphasia following other cerebrovascular disease; Z96.641 Presence of right artificial hip joint
CPT/HCPCS: 43760; 74000-TC; 99284-25